=== PATIENT | male | born 1965 | race Caucasian/White ===

== ENCOUNTER 2016-10-07 22:59 | Emergency (ER) | payer BC ==
--- NOTE | 2016-10-08 00:28 | ED ---
Lower Extremity - HPI Summary HPI Summary: 50M presents with right knee pain for a day. has history of meniscal injury on this knee. past week has been getting worst. today he slipped and twisted his knee. pain is located on the medial and posterior aspect of knee. states feels like rice crispies. took ibuprofen for pain. denies any numbness or tingling. has been able to ambulate on it with pain. denies any giving out but admits to clicking. never had surgery for meniscal injury. - History of Current Complaint Chief Complaint: EDExtremityLower Stated Complaint: RIGHT KNEE PAIN Time Seen by Provider: 10/07/16 23:16 Pain Intensity: 3 - Allergies/Home Medications Allergies/Adverse Reactions: Allergies Allergy/AdvReac Type Severity Reaction Status Date / Time No Known Allergies Allergy Verified 12/03/15 11:15 PMH/Surg Hx/FS Hx/Imm Hx Endocrine/Hematology History: Denies: Hx Anticoagulant Therapy Cardiovascular History: Denies: Hx Pacemaker/ICD - Surgical History Surgery Procedure, Year, and Place: STRABISMUS CORRECTION Infectious Disease History: No Infectious Disease History: Denies: Traveled Outside the [place] in Last 30 Days - Family History Known Family History: Negative: Blood Disorder - Social History Alcohol Use: Rare Substance Use Type: Reports: None Smoking Status (MU): Never Smoked Tobacco Review of Systems Negative: Fever Negative: Chest Pain Positive: Shortness Of Breath Positive: Myalgia - right knee pain All Other Systems Reviewed And Are Negative: Yes Physical Exam Triage Information Reviewed: Yes Vital Signs On Initial Exam: Initial Vitals Temp Pulse Resp BP Pulse Ox 96.5 F 72 20 130/93 94 10/07/16 23:04 10/07/16 23:04 10/07/16 23:04 10/07/16 23:04 10/07/16 23:04 Vital Signs Reviewed: Yes Appearance: Positive: Well-Appearing Skin: Positive: Warm, Dry Head/Face: Positive: Normal Head/Face Inspection Eyes: Positive: Normal, Conjunctiva Clear Respiratory/Lung Sounds: Positive: Clear to Auscultation, Breath Sounds Present Cardiovascular: Positive: Normal, RRR Musculoskeletal: Positive: Limited @ - right knee due to pain, Other - nontender patella, tender on medial and posterior aspect knee, neg anterior drawer, pos juan m, good pulses Diagnostics - Vital Signs Vital Signs Temp Pulse Resp BP Pulse Ox 08/04/17 23:54 98 F 73 16 130/93 98 10/07/16 23:04 96.5 F 72 20 130/93 94 - Laboratory Lab Statement: Any lab studies that have been ordered have been reviewed, and results considered in the medical decision making process. - Radiology knee Xray Interpretation: No Acute Changes Radiology Interpretation Completed By: ED Physician Lower Extremity Course/Dx - Course Course Of Treatment: 50M presents with right knee pain for a day. has history of meniscal injury on this knee. past week has been getting worst. today he slipped and twisted his knee. pain is located on the medial and posterior aspect of knee. states feels like rice crispies. took ibuprofen for pain. denies any numbness or tingling. has been able to ambulate on it with pain. denies any giving out but admits to clicking. xray normal. pos juan m. will have follow up with ortho. patient understands and agrees with plan. - Diagnoses Differential Diagnosis/HQI/PQRI: Positive: Contusion, Fracture (Closed), Sprain Provider Diagnoses: Right knee pain Discharge - Discharge Plan Condition: Good Disposition: HOME Patient Education Materials: Knee Pain (ED) Referrals: Romeo Davis MD [Primary Care Provider] - Kiran Villatoro MD [Medical Doctor] - Additional Instructions: Take Tylenol or ibuprofen every 6 hours as needed for pain Apply ice, rest, elevate Follow up with ortho Return to ED if develop any new or worsening symptoms
[2016-10-08 00:53] VITALS: BP 130/70
--- NOTE | 2016-10-08 10:15 | RAD ---
Indication: RIGHT knee pain lateral and posterior aspects following twisting injury 2 weeks ago. Comparison: None. Technique: RIGHT knee: AP, tunnel, lateral, sunrise views. Report: Negative for effusion, fracture, or malalignment. Preserved joint spaces. 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 Unremarkable soft tissue contours. IMPRESSION: No acute abnormality evident.
== END 2016-10-08 01:03 | disposition home or self-care (01) ==
LOC: ED 22:59
DX: M25.561 Pain in right knee (principal)
CPT/HCPCS: 99282